=== PATIENT | male | born 1995 | race Caucasian/White ===

== ENCOUNTER 2017-01-14 15:00 | Emergency (ER) | payer OTHER ==
[2017-01-14 15:16] VITALS: PULSE 102; RESP 16; TEMP 98.8; O2SAT 100
--- NOTE | 2017-01-14 15:51 | ED PDOC ---
HPI: Male Pain Time Seen by Provider: 01/14/17 15:23 Chief Complaint (Nursing): Male Genitourinary Chief Complaint (Provider): Male Genitourinary STD check History Per: Patient History/Exam Limitations: no limitations Additional Complaint(s): 15:23 Neo Thornton, 21 year old male presents to the ED on 01/14/17, requesting an STD evaluation upon being informed his partner has tested positive for STDs, exact STD is unknown. The patient is asymptomatic and denies any discharge or dysuria. The patient's last sexual contact was 2 months ago and the patient reports to have inconsistent use of prophylactics. Past Medical History Reviewed: Historical Data, Nursing Documentation, Vital Signs Vital Signs: Last Vital Signs Temp 98.8 F 01/14/17 15:12 Pulse 102 H 01/14/17 15:12 Resp 16 01/14/17 15:12 BP Pulse Ox 100 01/14/17 15:12 - Medical History PMH: No Chronic Diseases - Family History Family History: States: Unknown Family Hx - Immunization History Hx Tetanus Toxoid Vaccination: No Hx Influenza Vaccination: No Hx Pneumococcal Vaccination: No - Home Medications Home Medications: Ambulatory Orders Medication Instructions Recorded Doxycycline Hyclate [Doxycycline] 1 tab PO BID #28 tab 10/13/13 - Allergies Allergies/Adverse Reactions: Allergies Allergy/AdvReac Type Severity Reaction Status Date / Time No Known Allergies Allergy Verified 01/14/17 15:12 Review of Systems Constitutional: Negative for: Fever Gastrointestinal: Negative for: Nausea, Vomiting, Abdominal Pain Genitourinary Male: Negative for: Dysuria, Hematuria, Penile Discharge, Scrotal Pain Musculoskeletal: Negative for: Back Pain Skin: Negative for: Lesions Physical Exam - Reviewed Nursing Documentation Reviewed: Yes Vital Signs Reviewed: Yes - Physical Exam Appears: Positive for: Non-toxic, No Acute Distress Head Exam: Positive for: ATRAUMATIC, NORMOCEPHALIC Skin: Positive for: Normal Color, Warm, Dry Eye Exam: Positive for: Normal appearance Neck: Positive for: Normal Male Genital Exam: Positive for: normal genitalia. Negative for: lesions, testicular tenderness (R) (no testicular mass tenderness), testicular tenderness (L) (no testicular mass tenderness), urethral discharge, other (no lymphadenopathy) Neurologic/Psych: Positive for: Alert, Oriented (x3) - ECG O2 Sat by Pulse Oximetry: 100 (RA) Pulse Ox Interpretation: Normal Medical Decision Making Medical Decision Makin:53 Initial Impression: STD Evaluation Initial Plan: * HIV 1&2 antibody * Clamydia/GC RNA, TMA * Rapid HIV Stat * Reevaluation Scribe Attestation: Documented by Melissa Alfred, training under Eli Rodriguez, acting as a scribe for Xu Blanco MD. Provider Scribe Attestation: All medical record entries made by the Scribe were at my direction and personally dictated by me. I have reviewed the chart and agree that the record accurately reflects my personal performance of the history, physical exam, medical decision making, and the department course for this patient. I have also personally directed, reviewed, and agree with the discharge instructions and disposition. Disposition - Clinical Impression Clinical Impression: Concern about STD in male without diagnosis - Patient ED Disposition Is Patient to be Admitted: No - Disposition Referrals: [facility] [Outside] Disposition: Routine/Home Disposition Time: 16:00 Condition: FAIR Instructions: Sexually Transmitted Diseases (ED)
[2017-01-14 16:13] VITALS: BP 134/88
== END 2017-01-14 16:15 | disposition home or self-care (01) ==
LOC: H.ER 15:00
DX: Z20.2 Contact with and (suspected) exposure to infections with a predominantly sexual mode of transmission (principal)